=== PATIENT | male | born 1995 ===

== ENCOUNTER 2017-03-18 23:28 | Emergency (ER) | payer SELFPAY ==
--- NOTE | 2017-03-18 23:32 | ED PDOC ---
Arrival/HPI - General Time Seen by Provider: 03/18/17 23:31 Historian: Patient - History of Present Illness Narrative History of Present Illness (Text): 03/18/17 23:31 21 year old male, with no significant past medical history, NKDA, who presents to the Emergency department complaining of right 1st toenail pain and swelling for the past 10 days with no trauma/fall. Patient states he began experiencing some swelling and erythema to the right 1st digit past 10 days ago which became very swollen and painful over the past 2 days. Patient denies any fever, chill, decreased ROM, or any other complaints Time/Duration: > week (10 days) Symptom Onset: Gradual Activities at Onset: Light Context: Home Past Medical History - Provider Review Nursing Documentation Reviewed: Yes Family/Social History - Physician Review Nursing Documentation Reviewed: Yes Family/Social History: Unknown Family HX Allergies/Home Meds Allergies/Adverse Reactions: Allergies No Known Allergies Allergy (Verified 03/19/17 00:22) Review of Systems - Physician Review All systems were reviewed & negative as marked: Yes - Review of Systems Constitutional: absent: Fatigue, Fevers Respiratory: absent: Cough, Sputum Cardiovascular: absent: Chest Pain Gastrointestinal: absent: Abdominal Pain, Diarrhea, Nausea, Vomiting Musculoskeletal: absent: Back Pain, Neck Pain Skin: Rash, Other (+right 1st toenail swelling) Neurological: absent: Headache, Dizziness Hemo/Lymphatic: absent: Adenopathy Psychiatric: absent: Anxiety, Depression Physical Exam Vital Signs Reviewed: Yes Vital Signs Temp Pulse Resp BP Pulse Ox 03/18/17 23:51 98.7 F 60 18 106/58 L 99 Temperature: Afebrile Pulse: Regular Respiratory Rate: Normal Appearance: Positive for: Well-Appearing, Non-Toxic, Comfortable Pain Distress: Moderate Mental Status: Positive for: Alert and Oriented X 3 - Systems Exam Head: Present: Atraumatic, Normocephalic Pupils: Present: PERRL Extroacular Muscles: Present: EOMI Conjunctiva: Present: Normal Mouth: Present: Moist Mucous Membranes Neck: Present: Normal Range of Motion Respiratory/Chest: Present: Clear to Auscultation, Good Air Exchange. No: Respiratory Distress, Accessory Muscle Use Cardiovascular: Present: Regular Rate and Rhythm, Normal S1, S2. No: Murmurs Abdomen: Present: Normal Bowel Sounds. No: Tenderness, Distention, Peritoneal Signs Back: Present: Normal Inspection Upper Extremity: Present: Normal Inspection. No: Cyanosis, Edema Lower Extremity: Present: Normal Inspection, Other (Rt. foot 1st great toe: visible ingrown toenail with the nail pushing on the medial aspect of the skin region, mild erythematous, no streaking or ulcers, FROM without limitation, sensation intact, motor 5/5, +DPPT pulses, capillary refill< 2 seconds, neurovascular intact. ). No: Edema Neurological: Present: GCS=15, Speech Normal, Motor Func Grossly Intact, Gait Normal, Memory Normal Skin: Present: Warm, Dry, Normal Color. No: Rashes Psychiatric: Present: Alert, Oriented x 3, Normal Insight, Normal Concentration Medical Decision Making ED Course and Treatment: 03/19/17 00:24 -keflex/motrin -lidocaine 03/19/17 00:53 -Sensation intact, motor 5/5, wound irrigated with 500cc normal saline, clean with betadine, 1% lidocaine digit toe block 1st digit with 1.5cc, sterile procedure, needle sisal picker inserted to the medial aspect of the nail and pulled up the excessive nail plus I trimmed it, removed approx. 1.5cmx0.5cm nail, pain and swelling resolved, xerofoam and gauze dressing, sensation intact, motor 5/5 , less than 1cc blood loss, pt. tolerated the procedure well. -Discharge home with keflex, motrin, bacitracin ointment, keep the dressing dry and clean, follow up with your own pmd and dehydrogenation supervisor within 2 days, return to the ER for any new or worsening signs or symptoms. - Medication Orders Current Medication Orders: Discontinued Medications Cephalexin Monohydrate (Keflex) 500 mg PO STAT STA PRN Reason: Protocol Stop: 03/19/17 00:27 Last Admin: 03/19/17 00:43 Dose: 500 mg Ibuprofen (Motrin Tab) 800 mg PO STAT STA Stop: 03/19/17 00:27 Last Admin: 03/19/17 00:42 Dose: 800 mg Lidocaine HCl (Lidocaine 1% (20ml)) 2 ml IJ STAT STA Stop: 03/19/17 00:27 Last Admin: 03/19/17 00:33 Dose: 1 % Comments: administered by PA - PA / AGRICULTURAL SPECIALIST / Resident Statement MD/DO has reviewed & agrees with the documentation as recorded. - Scribe Statement The provider has reviewed the documentation as recorded by the Ronnie Nelson Provider Scribe Attestation: All medical record entries made by the Scribe were at my direction and personally dictated by me. I have reviewed the chart and agree that the record accurately reflects my personal performance of the history, physical exam, medical decision making, and the department course for this patient. I have also personally directed, reviewed, and agree with the discharge instructions and disposition. Disposition/Present on Arrival - Present on Arrival Any Indicators Present on Arrival: No History of DVT/PE: No History of Uncontrolled Diabetes: No Urinary Catheter: No History of Decub. Ulcer: No - Disposition Have Diagnosis and Disposition been Completed?: Yes Diagnosis: Ingrown toenail Disposition: HOME/ ROUTINE Disposition Time: 00:26 Patient Plan: Discharge Condition: IMPROVED Additional Instructions: -Discharge home with keflex, motrin, bacitracin ointment, keep the dressing dry and clean, follow up with your own pmd and dehydrogenation supervisor within 2 days, return to the ER for any new or worsening signs or symptoms. Prescriptions: Bacitracin Ointment [Bacitracin] 1 appful TOP BID #15 g Cephalexin [cephalexin] 500 mg PO QID #28 cap Ibuprofen [Motrin] 600 mg PO QID PRN #35 tab PRN Reason: Other Referrals: [facility] [place] [Outside] - Follow up with primary Edenilson Hoyt DPM [Staff Provider] - Follow up with primary Forms: WORK NOTE
[2017-03-18 23:51] VITALS: BP 106/58; PULSE 60; RESP 18; TEMP 98.7; O2SAT 99
[2017-03-19] MEDS ORDERED: Lidocaine 1% Inj (20ml) IJ STA (00:26)
== END 2017-03-19 01:15 | disposition home or self-care (01) ==
LOC: ED 23:28
DX: L60.0 Ingrowing nail (principal)